=== PATIENT | male | born 1950 | race Caucasian/White ===

== ENCOUNTER → 2016-11-26 | Outpatient (CLI) | payer OTHER | LOC: HEART 5 08:47 | DX: G61.0 Guillain-Barre syndrome (principal); R94.2 Abnormal results of pulmonary function studies | CPT/HCPCS: 94060 ==

== ENCOUNTER → 2022-03-27 | Outpatient (CLI) | payer MEDICARE ==
[~2022-03-27] MED LIST: DIOVAN160 MG PO; FLUVOXAMINE MA100 M1 PO; GABAPENTIN400 MG PO; GLUCOPHAGE1000 MG PO; IRON PILL PO; KLONOPIN1 MG PO; MINIPRESS2 MG PO; NAPROSYN500 MG PO; ONCE DAILY1 EACH PO; PANTOPRAZOLE SO40 MG PO; TENORMIN 50 MG50 MG PO; ZANTAC300 MG PO
== END ==
LOC: HEART 5 13:04
DX: I71.2 Thoracic aortic aneurysm, without rupture (principal); I11.9 Hypertensive heart disease without heart failure; I08.8 Other rheumatic multiple valve diseases
CPT/HCPCS: 93306

== ENCOUNTER → 2022-04-09 | Outpatient (CLI) | payer MEDICARE ==
[~2022-04-09] MED LIST changes: +ASPIRIN EC81 MG PO; +AZITHROMYCIN250 MG PO; +CIALIS20 MG PO; -FLUVOXAMINE MA100 M1 PO; +FLUVOXAMINE MAL50 MG PO; -GABAPENTIN400 MG PO; +GABAPENTIN600 MG PO; +HYDROCHLOROTH12.5 M1 PO; +PREDNISONE10 M1 PO; +PROTONIX 40 MG40 M1 PO
== END ==
LOC: CT 07:39
DX: I71.2 Thoracic aortic aneurysm, without rupture (principal); J98.11 Atelectasis
CPT/HCPCS: 71275; Q9967